=== PATIENT | female | born 1990 | race Caucasian/White ===

== ENCOUNTER 2020-08-02 11:57 | Emergency (ER) | payer OTHER ==
[~2020-08-02] VITALS: Ht 157.5 cm; Wt 86.2 kg
[2020-08-02 12:17] LABS: URINE BILIRUBIN NEGATIVE (Negative); URINE BLOOD NEGATIVE (Negative); URINE CLARITY CLEAR; URINE COLOR YELLOW; URINE GLUCOSE-RANDOM* NEGATIVE (Negative); URINE KETONES NEGATIVE (Negative); URINE LEUKOCYTES-REFLEX NEGATIVE (Negative); URINE NITRITE-REFLEX NEGATIVE (Negative); URINE PROTEIN (DIPSTICK) NEGATIVE (Negative); URINE SPECIFIC GRAVITY >= 1.030 (1.005-1.035); URINE UROBILINOGEN 0.2 E.U./dl (0.2-1.0)
[2020-08-02 12:26] LABS: BASOPHILS 0.7 % (0.0-2.0); EOSINOPHILS 2.5 % (0.0-3.0); HEMATOCRIT 40.8 % (37.0-47.0); HEMOGLOBIN 13.7 gm/dL (12.0-15.0); LYMPHOCYTES 35.8 % (24.0-44.0); MCHC 33.5 g/dL (28.0-37.0); MCV 86.5 fL (80.0-100.0); MONOCYTES 6.4 % (1.0-8.0); PLATELET COUNT 308 thou/uL (150-400); POLYS 54.6 % (36.0-66.0); RBC 4.72 mil/uL (4.20-5.00); RDW 14.1 % (10.5-14.5); WBC 9.2 thou/uL (4.0-11.0)
[2020-08-02 12:38] LABS: CALCIUM 9.3 mg/dL (8.5-10.1); CREATININE 0.7 mg/dL (0.6-1.0); POTASSIUM 3.8 mmol/L (3.5-5.1)
[2020-08-02 12:42] LABS: ALBUMIN 4.1 g/dL (3.4-5.0); TOTAL BILIRUBIN 0.3 mg/dL (0.2-1.0); TOTAL PROTEIN 8.5 g/dL (6.4-8.2)
[2020-08-02 15:43] VITALS: BP 121/75
== END 2020-08-02 15:43 | disposition home or self-care (01) ==
LOC: ER 11:57
PROVIDERS: Physician Assistant
DX: M54.9 Dorsalgia, unspecified (principal); Z33.1 Pregnant state, incidental; Z88.1 Allergy status to other antibiotic agents; Z88.2 Allergy status to sulfonamides; Z88.8 Allergy status to other drugs, medicaments and biological substances